=== PATIENT | male | born 1960 | race Caucasian/White ===

== ENCOUNTER 2016-11-05 11:36 | Emergency (ER) | payer SELFPAY ==
[~2016-11-05] VITALS: Ht 172.7 cm; Wt 90.0 kg
[2016-11-05 11:39] VITALS: BP 123/80; PULSE 94; RESP 16; TEMP 97.8; O2SAT 95
--- NOTE | 2016-11-05 12:04 | PD ---
HPI Chief Complaint: Pain: Acute or Chronic Time Seen by Provider: 12:04 Travel History International Travel<30 days: No Contact w/Intl Traveler<30days: No Traveled to known affect area: No History of Present Illness HPI 55-year-old male presents to the emergency department status post fall from a ladder at the roof line falling backwards onto the cement patio around a pool. Patient actually fell on October 30, 2016. Patient was previously seen at [facility], and stated that they said his foot was broken, and that he needed to see an orthopedic. Patient has no insurance and therefore has been unable to follow-up with orthopedics since his fall. Patient was prescribed Percocet be states he did not get it secondary to cost. He is concerned that it is not healing. He has crutches and a splint, that he has been using. Patient states his pain is an 8/10 while ambulating, but while laying still to 4/10. Patient did take breakfast prior to arrival. He has no known drug allergies. [facility] Social History Alcohol Use: Yes Tobacco Use: Yes Substance Use: No Allergies-Medications (Allergen,Severity, Reaction): Coded Allergies: No Known Allergies (Unverified , 11/05/16) Reported Meds & Prescriptions Reported Meds & Active Scripts Active No Active Prescriptions or Reported Medications Review of Systems Except as stated in HPI: all other systems reviewed are Neg General / Constitutional: No: Fever Eyes: No: Visual changes HENT: No: Headaches Cardiovascular: No: Chest Pain or Discomfort Respiratory: No: Shortness of Breath Gastrointestinal: No: Abdominal Pain Genitourinary: No: Dysuria Musculoskeletal: Positive: Myalgias, Arthralgias, Limited ROM, Weakness, Pain Skin: No Rash Neurologic: No: Weakness Psychiatric: No: Depression Endocrine: No: Polydipsia Hematologic/Lymphatic: No: Easy Bruising Physical Exam Narrative GENERAL: Patient appears in mild to moderate distress. SKIN: Warm and dry. Normal color. Normal turgor. Heel and foot shows edema with significant ecchymosis to the sole and heel region with closed blister to the medial heel below the medial malleolus. Pulses are intact. No open wound or signs of cellulitis. HEAD: Atraumatic. Normocephalic. EYES: Pupils equal and round. No scleral icterus. No injection or drainage. ENT: No nasal bleeding or discharge. Mucous membranes pink and moist. NECK: Trachea midline. No JVD. CARDIOVASCULAR: Regular rate and rhythm. RESPIRATORY: No accessory muscle use. Clear to auscultation. Breath sounds equal bilaterally. GASTROINTESTINAL: Abdomen soft, non-tender, nondistended. Hepatic and splenic margins not palpable. MUSCULOSKELETAL: Extremities without clubbing, cyanosis, or edema. Left foot appears edematous, without significant deformity. Pain is localized to the heel. NEUROLOGICAL: Awake and alert. No obvious cranial nerve deficits. Motor grossly within normal limits. Five out of 5 muscle strength in the arms and legs. Normal speech. PSYCHIATRIC: Appropriate mood and affect; insight and judgment normal. Data Data Last Documented VS Vital Signs Date Time Temp Pulse Resp B/P Pulse Ox O2 Delivery O2 Flow Rate FiO2 11/05/16 11:39 97.8 94 16 123/80 95 Orders Foot, Complete ([id number]) (11/05/16 12:10) Ice/Cold Pack (11/05/16 12:10) NPO (11/05/16 12:10) Splinting (11/05/16 ) Acetamin-Hydrocod 325-5 Mg (Felt 5-325 (11/05/16 13:15) Mandatory Outpatient Referral (11/05/16 13:13) Ct Foot W/O Contrast (11/05/16 ) MDM Medical Decision Making Medical Screen Exam Complete: Yes Emergency Medical Condition: Yes Differential Diagnosis Fall from ladder. Left calcaneal fracture. Left foot fracture. Left ankle fracture. Narrative Course Patient is medically stable at time of exam. X-rays of the left foot is ordered. Patient is made nothing by mouth. Patient did not request pain medication at this time. X-ray shows calcaneal fracture. Patient was given Felt 5/325 by mouth. Call was placed to Dr. Dorado, the orthopedic on-call, and x-ray was reviewed. He recommended CT scan of the heel for further evaluation. CT scan of the left calcaneus was ordered. CT scan shows comminuted fracture of the calcaneus. Call was placed back to Dr. Dorado and CT scan results were reviewed. He recommended a bulky posterior splint, nonweightbearing and crutches. Patient is to follow with Dr. Dorado, and a one-time visit was ordered. Patient is given a prescription for Lortab 5/325 one every 6 hours when necessary pain. #20. Patient follow with Dr. Dorado for further evaluation and treatment. Patient should expect a phone call to arrange this appointment. Diagnosis Primary Impression: Closed left calcaneal fracture Qualified Code: S92.002D - Closed nondisplaced fracture of left calcaneus with routine healing, unspecified portion of calcaneus, subsequent encounter Referrals: Nick Dorado MD call for appointment Patient Instructions: Crutch Instructions (ED), General Instructions, Splint Care (ED) Additional Instructions: CT scan shows comminuted fracture of the calcaneus. Call was placed back to Dr. Dorado and CT scan results were reviewed. He recommended a bulky posterior splint, nonweightbearing and crutches. Patient is to follow with Dr. Dorado, and a one-time visit was ordered. Patient is given a prescription for Lortab 5/325 one every 6 hours when necessary pain. #20. Patient follow with Dr. Droado for further evaluation and treatment. Patient should expect a phone call to arrange this appointment. Scripts No Active Prescriptions or Reported Meds Disposition: 01 DISCHARGE HOME Condition: Stable Luis May Nov 05, 2016 12:04
--- NOTE | 2016-11-05 13:02 | RADRPT ---
EXAM DATE/TIME: 11/05/2016 12:37 [facility] COMPARISON: No previous studies available for comparison. INDICATIONS: Left foot pain, fall off roof. MEDICAL HISTORY: None. SURGICAL HISTORY: None. ENCOUNTER: Initial ACUITY: 1 day PAIN SCORE: 10/10 LOCATION: Left entire foot FINDINGS: There is soft tissue swelling over the dorsum of the foot. Alignment is anatomic, fracture is not ap preciated. CONCLUSION: Soft tissue swelling without fracture. Buddy Hebert MD FACR on November 05, 2016 at 12:44 Board Certified Radiologist. This report was verified electronically.
[2016-11-05] MEDS ORDERED: ACETAMINOPHEN/HYDROcodone 325 MG/5 MG TAB PO ONE (13:15)
--- NOTE | 2016-11-05 14:13 | RADRPT ---
EXAM DATE/TIME: 11/05/2016 13:33 [facility] COMPARISON: FOOT LEFT COMPLETE ([id number]), November 05, 2016, 12:37. INDICATIONS : Fracutre from fall 6 days ago. RADIATION DOSE: 5.72 CTDIvol (mGy) MEDICAL HISTORY : None SURGICAL HISTORY : None. ENCOUNTER: Initial ACUITY: 1 day PAIN SCALE: 5/10 LOCATION: Left foot TECHNIQUE: Volumetric scanning of the foot was performed. Using automated exposure control and adjustment of th e mA and/or kV according to patient size, radiation dose was kept as low as reasonably achievable to obtain optimal diagnostic quality images. FINDINGS: BONES: There is a moderately comminuted fracture deformity of the calcaneus with multiple ill-defined fractu re lines extending into the subtalar joint. There is a fracture through the sustentaculum jessy as wel l. One of the fracture lines extends into the calcaneal cuboid joint. There is only minimal distracti on of the fracture fragments with no significant angulation. The talus is intact. The distal tibia an d fibular are intact as well. There is a normal ankle mortise. There is diffuse soft tissue swelling surrounding the calcaneus. JOINTS: No evidence of joint narrowing or effusion. SOFT TISSUES: Muscles, tendons, and neurovascular structures are grossly unremarkable. No evidence of mass, organiz ed fluid collection, or foreign body. CONCLUSION: Lateral comminuted fracture deformity of the calcaneus. Cory Rosario MD on November 05, 2016 at 14:08 Board Certified Radiologist. This report was verified electronically.
[2016-11-05] MEDS ORDERED: HYDR-3533 PO ×2 (14:56→15:15)
== END 2016-11-05 15:38 | disposition home or self-care (01) ==
LOC: NEPB 11:36
DX: S92.002A Unspecified fracture of left calcaneus, initial encounter for closed fracture (principal); W11.XXXA Fall on and from ladder, initial encounter
CPT/HCPCS: 29515; 73630; 73700

== ENCOUNTER 2018-02-19 20:11 | Emergency (ER) | payer SELFPAY ==
[~2018-02-19] VITALS: Ht 177.8 cm; Wt 77.3 kg
[~2018-02-19 20:11] MED LIST: HYDR-3533 PO
[2018-02-19 20:14] VITALS: BP 134/80; PULSE 119; RESP 16; TEMP 98.9; O2SAT 98
[2018-02-19] MEDS ORDERED: SODIUM CHLORIDE 0.9% FLUSH 10 ML FLUSH IVF PRN (20:30)
[2018-02-19] MEDS ORDERED: NALOXONE HCL 2 MG/2 ML VIAL IM ONE (20:30)
--- NOTE | 2018-02-19 20:41 | PD ---
HPI Chief Complaint: Alcohol/Drug Intoxication Time Seen by Provider: 20:23 Travel History International Travel<30 days: No Contact w/Intl Traveler<30days: No Traveled to known affect area: No History of Present Illness HPI This is a 57-year-old male who presents today after he apparently shot heroin and became unconscious. Paramedics report that the people in the house where he shot heroin, started CPR. When they arrived, the patient was awake and answering questions appropriately. He reports shooting a bag of heroin today. He also reports smoking cocaine recently. Patient is remorseful for the episode and states that he has been going through life stressors since his and children were deported back to [place]. He understands the severity of what has happened and states that he is extremely embarrassed. There are no other complaints at the time of my examination. [facility] Past Medical History Medical History: Denies Significant Hx Social History Alcohol Use: Yes Tobacco Use: Yes Substance Use: Yes Allergies-Medications (Allergen,Severity, Reaction): Coded Allergies: No Known Allergies (Unverified Adverse Reaction, Unknown, 02/19/18) Reported Meds & Prescriptions Reported Meds & Active Scripts Active Review of Systems Except as stated in HPI: all other systems reviewed are Neg General / Constitutional: No: Fever, Chills HENT: No: Headaches, Lightheadedness Cardiovascular: No: Chest Pain or Discomfort, Palpitations Respiratory: No: Cough, Shortness of Breath Gastrointestinal: No: Nausea, Vomiting, Abdominal Pain Musculoskeletal: No: Weakness, Pain Skin: No Rash, No Lesions Neurologic: No: Weakness, Dizziness, Syncope, Headache Physical Exam Narrative GENERAL: Well developed well-nourished male no acute respiratory distress. Patient is appropriately remorseful. SKIN: Focused skin assessment warm/dry. HEAD: Atraumatic. Normocephalic. EYES: No scleral icterus. No injection or drainage. ENT: No nasal bleeding or discharge. Mucous membranes pink and moist. NECK: Trachea midline. Supple. CARDIOVASCULAR: Regular rate and rhythm. No murmur appreciated. RESPIRATORY: No accessory muscle use. Clear to auscultation. Breath sounds equal bilaterally. GASTROINTESTINAL: Abdomen soft, non-tender, nondistended. Hepatic and splenic margins not palpable. MUSCULOSKELETAL: No obvious deformities. No clubbing. No cyanosis. No edema. NEUROLOGICAL: Awake and alert. No obvious cranial nerve deficits. Motor grossly within normal limits. Normal speech. PSYCHIATRIC: Appropriate mood and affect; insight and judgment normal, despite what has happened tonight. Data Data Last Documented VS Vital Signs Date Time Temp Pulse Resp B/P (MAP) Pulse Ox O2 Delivery O2 Flow Rate FiO2 02/19/18 20:14 98.9 119 16 134/80 (98) 98 Orders Orders Basic Metabolic Panel (Bmp) (02/19/18 20:23) Iv Access Insert/Monitor (02/19/18 20:23) Ecg Monitoring (02/19/18 20:23) Oximetry (02/19/18 20:23) Naloxone Inj (Narcan Inj) (02/19/18 20:30) Sodium Chloride 0.9% Flush (Ns Flush) (02/19/18 20:30) Drug Screen, Random Urine (02/19/18 20:23) Alcohol (Ethanol) (02/19/18 20:23) Salicylates (Aspirin) (02/19/18 20:23) Tylenol (Acetaminophen) (02/19/18 20:23) Labs Laboratory Tests Test 02/19/18 20:48 Blood Urea Nitrogen 12 MG/DL Creatinine 1.22 MG/DL Random Glucose 122 MG/DL Calcium Level 9.8 MG/DL Sodium Level 141 MEQ/L Potassium Level 3.8 MEQ/L Chloride Level 103 MEQ/L Carbon Dioxide Level 28.2 MEQ/L Anion Gap 10 MEQ/L Estimat Glomerular Filtration Rate 62 ML/MIN Salicylates Level LESS THAN 1.7 MG/DL Acetaminophen Level LESS THAN 2.0 MCG/ML Ethyl Alcohol Level LESS THAN 3 MG/DL MDM Medical Decision Making Medical Screen Exam Complete: Yes Emergency Medical Condition: Yes Differential Diagnosis Heroin overdose versus polysubstance overdose versus metabolic derangement Narrative Course 57-year-old male who presents after he reportedly shot IV heroin. Patient states that he has been sad because of his wedding anniversary and his and children have been deported back to [place]. He was awake and alert here. Patient stated he used cocaine and heroin. He was given 4 mg of IM Narcan. He has been observed for 5 hours and is been in no respiratory distress. He will be discharged and told to stop using drugs. He will be given [facility] information. Diagnosis Primary Impression: Reported heroin overdose Additional Impressions: History of polysubstance abuse Acute life stressors Referrals: [facility] Additional Instructions: Stop using drugs. Disposition: 01 DISCHARGE HOME Condition: Stable Riley Knapp MD Feb 19, 2018 20:41
[2018-02-19 21:40] LABS: BICARBONATE 28.2 MEQ/L (21.0-32.0); BLOOD UREA NITROGEN 12 MG/DL (7-18); CALCIUM 9.8 MG/DL (8.5-10.1); CHLORIDE 103 MEQ/L (98-107); CREATININE 1.22 MG/DL (0.60-1.30); GLOMERULAR FILTRATION RATE 62 ML/MIN (>89); GLUCOSE,RANDOM 122 MG/DL (74-106); SODIUM (NA) 141 MEQ/L (136-145)
[2018-02-19 21:48] LABS: ACETAMINOPHEN LESS THAN 2.0 MCG/ML (10.0-30.0)
[2018-02-20 02:58] VITALS: BP 126/79
== END 2018-02-20 02:58 | disposition home or self-care (01) ==
LOC: NEPE 20:11
DX: T40.1X1A Poisoning by heroin, accidental (unintentional), initial encounter (principal); T40.5X1A Poisoning by cocaine, accidental (unintentional), initial encounter; Z72.0 Tobacco use
CPT/HCPCS: 80048; 80307; 96372; 99283; J2310